=== PATIENT | female | born 1985 | race Caucasian/White ===

== ENCOUNTER 2022-08-07 22:49 | Emergency (ER) | payer OTHER ==
[~2022-08-07] VITALS: Ht 152.4 cm; Wt 79.0 kg
[2022-08-07] MEDS ORDERED: ONDANSETRON 4MG ODT PO STA (23:44)
[2022-08-07] MEDS ORDERED: FAMOTIDINE 20MG TABLET PO ONE (23:45)
[2022-08-08 01:22] LABS: CHLORIDE 106 mEq/L (98-107)
[2022-08-08 01:30] LABS: ETHANOL BLOOD < 10 mg/dL
[2022-08-08 01:31] LABS: BASOPHILS % 0.5 % (0.0-2.0); EOSINOPHILS % 1.4 % (0.0-5.0); HEMATOCRIT. 37.6 % (36.0-48.0); HEMOGLOBIN. 12.2 g/dL (12.0-16.0); LYMPHOCYTES % 22.1 % (20.0-50.0); MEAN CORPUSCULAR HEMOGLOBIN 23.1 pg (28.0-32.0); MEAN PLATELET VOLUME 9.9 fl (7.4-10.4); PLATELET 263 x1000/uL (130-400); RED CELL DISTRIBUTION WIDTH 16.6 % (11.6-14.6)
[2022-08-08 01:44] LABS: CLARITY URINE CLOUDY (CLEAR); COLOR URINE DARK YELLOW (YELLOW); KETONES URINE TRACE (NEGATIVE); LEUKOCYTE ESTERASE URINE 1+ (NEGATIVE); NITRITE URINE NEGATIVE (NEGATIVE); OCCULT BLOOD URINE NEGATIVE (NEGATIVE); PROTEIN URINE TRACE (NEGATIVE); SPECIFIC GRAVITY URINE 1.033 (1.005-1.030)
[2022-08-08 01:56] LABS: HCG SCREEN NEGATIVE
[2022-08-08 02:24] VITALS: BP 118/87
[2022-08-08 03:02] LABS: *AMPHETAMINES SCREEN URINE NEGATIVE (NEGATIVE); *BARBITURATES SCREEN URINE NEGATIVE (NEGATIVE); *BENZODIAZEPINES SCREEN URINE NEGATIVE (NEGATIVE); *COCAINE SCREEN URINE NEGATIVE (NEGATIVE); METHADONE URINE SCREEN NEGATIVE (NEGATIVE); OPIATES URINE SCREEN NEGATIVE (NEGATIVE); PHENCYCLIDINE URINE SCREEN NEGATIVE (NEGATIVE)
[2022-08-08 03:16] LABS: CANNABINOID URINE SCREEN PRESUMTIVE POSITIVE (NEGATIVE)
== END 2022-08-08 02:26 | disposition home or self-care (01) ==
LOC: ER 22:49
DX: K29.70 Gastritis, unspecified, without bleeding (principal); R10.9 Unspecified abdominal pain; R11.2 Nausea with vomiting, unspecified; E11.9 Type 2 diabetes mellitus without complications; I10 Essential (primary) hypertension; E05.90 Thyrotoxicosis, unspecified without thyrotoxic crisis or storm
CPT/HCPCS: 36415; 80053; 80305; 80307; 80320; 80329; 81003; 81025; 82962; 83690; 84703; 85025; 99283; Q0162; G0480

== ENCOUNTER 2022-11-08 14:46 | Emergency (ER) | payer OTHER ==
[~2022-11-08] VITALS: Ht 152.4 cm; Wt 81.0 kg
[2022-11-08 16:48] LABS: BASOPHILS % 0.5 % (0.0-2.0); EOSINOPHILS % 0.7 % (0.0-5.0); HEMATOCRIT. 41.3 % (36.0-48.0); HEMOGLOBIN. 13.7 g/dL (12.0-16.0); LYMPHOCYTES % 12.4 % (20.0-50.0); MEAN CORPUSCULAR HEMOGLOBIN 23.7 pg (28.0-32.0); MEAN CORPUSCULAR VOLUME 71.3 fL (81.0-99.0); MEAN PLATELET VOLUME 9.5 fl (7.4-10.4); MONOCYTES % 6.7 % (2.0-8.0); NEUTROPHILS % 79.7 % (40.0-76.0); PLATELET 325 x1000/uL (130-400); RED CELL DISTRIBUTION WIDTH 15.7 % (11.6-14.6)
[2022-11-08 16:58] LABS: CHLORIDE 102 mEq/L (98-107)
[2022-11-08 19:11] LABS: HCG SCREEN NEGATIVE
[2022-11-08] MEDS ORDERED: VISCOUS LIDOCAINE 2% 15 ML UDC PO STA (19:34)
[2022-11-08] MEDS ORDERED: MAGNESIUM/ALUMINUM HYDROXIDE/SIMETHICONE 30ML UDC PO STA (19:34)
[2022-11-08] MEDS ORDERED: IBUPROFEN 600MG TABLET PO ONE (19:45)
[2022-11-09] MEDS ORDERED: ONDANSETRON HCL 4MG/2ML INJ IV ONE
[2022-11-09] MEDS ORDERED: MORPHINE SULFATE 4 MG/ML CPJ (NOT FOR IM USE) IV ONE
[2022-11-09] MEDS ORDERED: METRONIDAZOLE 500 MG PREMIX 100 ML IV ONE
[2022-11-09] MEDS ORDERED: CEFTRIAXONE 1 G PREMIX 50 ML IV ONE
[2022-11-09] MEDS ORDERED: IBUPROFEN 600MG TABLET PO NR (01:00)
[2022-11-09] MEDS ORDERED: METRONIDAZOLE 500 MG PREMIX 100 ML IV NR (01:00)
[2022-11-09] MEDS ORDERED: VISCOUS LIDOCAINE 2% 15 ML UDC PO NR (01:00)
[2022-11-09] MEDS ORDERED: MAGNESIUM/ALUMINUM HYDROXIDE/SIMETHICONE 30ML UDC PO NR (01:00)
[2022-11-09 01:08] VITALS: BP 131/82
== END 2022-11-09 03:14 | disposition short-term general hospital (02) ==
LOC: ER 14:46
DX: K81.0 Acute cholecystitis (principal); E11.9 Type 2 diabetes mellitus without complications; I10 Essential (primary) hypertension; E05.90 Thyrotoxicosis, unspecified without thyrotoxic crisis or storm; Z98.890 Other specified postprocedural states
CPT/HCPCS: 36415; 71045; 74176; 76705; 80053; 81025; 82962; 83690; 84484; 84703; 85025; 93005; 96365; 96375; 99285; J0696; J2270; J2405; J3490